=== PATIENT | male | born 1990 | race African-American/Black ===

== ENCOUNTER 2022-09-06 14:07 | Emergency (ER) | payer OTHER ==
[2022-09-06 15:09] LABS: SARS-COV-2 RT PCR NEGATIVE (NEGATIVE)
--- NOTE | 2022-09-06 15:41 | ER ---
Nurse's Notes [facility] Name: Angus Balderrama Age: 32 yrs Sex: Male : 1990 Arrival Date: 09/06/2022 Time: 14:07 Bed 10 Private MD: Diagnosis: Influenza due to identified novel influenza A virus Presentation: 09/06 14:12 Chief complaint: Patient states: SOB, and achy all over started today while at work ll1 1330. Coronavirus screen: Vaccine status: Patient reports receiving the 2nd dose of the covid vaccine. Client denies travel out of the [place] in the last 14 days. cough unrelated to allergies, difficulty breathing, fatigue, fever, headache, muscle pain, shortness of breath, Client presents with at least one sign or symptom that may indicate coronavirus-19. Standard/surgical mask placed on the client. Ebola Screen: Patient denies travel to an Ebola-affected area in the 21 days before illness onset. Initial Sepsis Screen: Does the patient meet any 2 criteria? No. Patient's initial sepsis screen is negative. Does the patient have a suspected source of infection? Yes: Productive cough/pneumonia. Risk Assessment: Do you want to hurt yourself or someone else? Patient reports no desire to harm self or others. Onset of symptoms was September 06, 2022. 14:12 Method Of Arrival: Ambulatory ll1 14:12 Acuity: GRAHAM 4 ll1 Triage Assessment: 14:15 General: Appears uncomfortable, ill, Behavior is cooperative, appropriate for age. ll1 Pain: Complains of pain in head Pain currently is 3 out of 10 on a pain scale. Quality of pain is described as aching. EENT: Reports nasal congestion. Respiratory: Reports cough that is Onset: The symptoms/episode began/occurred this morning, the patient has mild shortness of breath. Historical: - Allergies: 14:15 No Known Allergies; ll1 - PMHx: 14:15 None; ll1 - PSHx: 14:15 None; ll1 - Immunization history:: Client reports receiving the 2nd dose of the Covid vaccine. - Social history:: Smoking status: Patient denies any tobacco usage or history of. Screenin:40 Abuse screen: Denies threats or abuse. Nutritional screening: No deficits noted. ap3 Tuberculosis screening: No symptoms or risk factors identified. Fall Risk None identified. Assessment: 15:40 Cardiovascular: Rhythm is regular. Respiratory: Airway is patent Respiratory effort is ap3 even, unlabored, Breath sounds are clear. Vital Signs: 14:12 BP 172 / 96; Pulse 105; Resp 17; Temp 99.0; Pulse Ox 98% ; Weight 117.93 kg; Height 6 ll1 ft. 2 in. (187.96 cm); Pain 3/10; 14:12 Body Mass Index 33.38 (117.93 kg, 187.96 cm) ll1 ED Course: 14:07 Patient arrived in ED. am2 14:15 Triage completed. ll1 14:16 Arm band placed on. ll1 14:17 COVID-19/FLU A+B/RSV Sent. ll1 14:23 Glory Carmona F[facility]-C [facility]. kb 14:23 Ariel Jarvis MD is Attending Physician. kb 15:31 Bianca Alvarez, RN is Primary Nurse. ap3 15:41 Patient has correct armband on for positive identification. Bed in low position. Call ap3 light in reach. Pulse ox on. NIBP on. Door closed. Noise minimized. 15:41 No provider procedures requiring assistance completed. Patient did not have IV access ap3 during this emergency room visit. Administered Medications: No medications were administered Medication: 15:41 VIS not applicable for this client. ap3 Outcome: 15:40 Discharge ordered by . kb 15:49 Discharged to home ambulatory. ap3 15:49 Condition: good 15:49 Discharge instructions given to patient, Instructed on discharge instructions, follow up and referral plans. medication usage, Demonstrated understanding of instructions, follow-up care, medications, Prescriptions given X 1. 15:49 Patient left the ED. ap3 Signatures: Glory Carmona FNP-C FNP-Ckb Moreno, Amanda am2 Bianca Alvarez, RN RN ap3 Zeny Sanchez, RN RN ll1
--- NOTE | 2022-09-06 15:41 | EDPHYS ---
Physician Documentation [facility] Name: Angus Balderrama Age: 32 yrs Sex: Male : 1990 Arrival Date: 09/06/2022 Time: 14:07 Bed 10 Private MD: ED Physician Ariel Jarvis HPI: 09/06 18:08 This 32 yrs old Black Male presents to ER via Ambulatory with complaints of Breathing kb Difficulty. 18:08 The patient or guardian reports cough, that is intermittent, described as mild, kb difficulty breathing, flu symptoms, myalgias. Onset: The symptoms/episode began/occurred today. Severity of symptoms: At their worst the symptoms were mild, moderate, in the emergency department the symptoms are unchanged. Modifying factors: The symptoms are alleviated by nothing, the symptoms are aggravated by nothing. Associated signs and symptoms: Pertinent positives: fever, Pertinent negatives: chest pain, diarrhea, ear ache, nausea, rhinorrhea, sore throat, vomiting. The patient has not experienced similar symptoms in the past. The patient has not recently seen a physician. Historical: - Allergies: 14:15 No Known Allergies; ll1 - PMHx: 14:15 None; ll1 - PSHx: 14:15 None; ll1 - Immunization history:: Client reports receiving the 2nd dose of the Covid vaccine. - Social history:: Smoking status: Patient denies any tobacco usage or history of. ROS: 18:07 Abdomen/GI: Negative for abdominal pain, nausea, vomiting, diarrhea, and constipation. kb 18:07 Constitutional: Positive for body aches, chills, malaise. 18:07 Respiratory: Positive for cough, shortness of breath. 18:07 All other systems are negative. Exam: 18:08 Constitutional: This is a well developed, well nourished patient who is awake, alert, kb and in no acute distress. Head/Face: Normocephalic, atraumatic. ENT: Moist Mucous membranes Cardiovascular: Regular rate and rhythm with a normal S1 and S2. No gallops, murmurs, or rubs. No pulse deficits. Respiratory: Respirations even and unlabored. No increased work of breathing. Talking in full sentences Abdomen/GI: Soft, non-tender. No distention Skin: Warm, dry with normal turgor. Normal color. MS/ Extremity: Pulses equal, no cyanosis. Neurovascular intact. Full, normal range of motion. Neuro: Awake and alert, GCS 15, oriented to person, place, time, and situation. Moves all extremities. Normal gait. Vital Signs: 14:12 BP 172 / 96; Pulse 105; Resp 17; Temp 99.0; Pulse Ox 98% ; Weight 117.93 kg; Height 6 ll1 ft. 2 in. (187.96 cm); Pain 3/10; 14:12 Body Mass Index 33.38 (117.93 kg, 187.96 cm) ll1 MDM: 15:31 Patient medically screened. kb 18:07 Data reviewed: vital signs, nurses notes. Data interpreted: Pulse oximetry: on room air kb is 98 %. Interpretation: normal. Counseling: I had a detailed discussion with the patient and/or guardian regarding: the historical points, exam findings, and any diagnostic results supporting the discharge/admit diagnosis, lab results, the need for outpatient follow up, a family practitioner, to return to the emergency department if symptoms worsen or persist or if there are any questions or concerns that arise at home. 09/06 14:16 Order name: COVID-19/FLU A+B/RSV; Complete Time: 15:16 ll1 Administered Medications: No medications were administered Disposition: 09/07 09:27 Co-signature as Attending Physician, Ariel Jarvis MD I agree with the assessment and rama plan of care. Disposition Summary: 09/06/22 15:40 Discharge Ordered Location: Home kb Condition: Stable kb Diagnosis - Influenza due to identified novel influenza A virus kb Followup: kb - With: Emergency Department - When: As needed - Reason: Worsening of condition Followup: kb - With: Private Physician - When: 2 - 3 days - Reason: Recheck today's complaints, Continuance of care, Re-evaluation by your physician Discharge Instructions: - Discharge Summary Sheet kb - Influenza, Adult, [id number] kb Forms: - Medication Reconciliation Form kb - Thank You Letter kb - Work release form kb - Antibiotic Education kb - Prescription Opioid Use kb Prescriptions: - Tamiflu 75 mg Oral Capsule - take 1 tablet by ORAL route every 12 hours for 5 days; 10 tablet; Refills: 0, kb Product Selection Permitted Signatures: Dispatcher [employer] EDGlory Estrella, BLADDER CLEANER-C CARMENCITA-Ariel Wan MD MD cha Lewis, Lynsay, RN RN ll1
[2022-09-06 15:58] VITALS: BP 172/96; TEMP 99; O2SAT 98
== END 2022-09-06 15:49 | disposition home or self-care (01) ==
LOC: ER 14:07
DX: J10.1 Influenza due to other identified influenza virus with other respiratory manifestations (principal); Z20.822 Contact with and (suspected) exposure to COVID-19
CPT/HCPCS: 0241U; 99283